=== PATIENT | male | born 1985 | race Caucasian/White ===

== ENCOUNTER 2022-11-12 14:38 | Emergency (ER) | payer MEDICAID, SELFPAY ==
[2022-11-12 14:40] VITALS: BP 121/92; PULSE 99; RESP 20; TEMP 36.9; O2SAT 97
--- NOTE | 2022-11-12 14:47 | ED.GENADUL_ITS ---
Discharge Plan Disposition Patient Disposition: Home Condition: Good Discharge Details Clinical Impression: Noncompliance with medications Primary Care Provider: Unknown,Unknown ED Provider: Spenser Silvestre Home Meds and New Rx's Prescriptions: No Action methadone 10 mg Tablet 50 mg PO DAILY Discharge Instructions Additional Instructions: Please do your best to not miss your methadone dosings at the clinic. If you notice any worsening of your symptoms, or any new symptoms such as vomiting, diarrhea, fever, chills, shortness of breath, chest pain, numbness, weakness, or fainting , please return immediately to the emergency department for reevaluation. Please follow up with your primary care provider as soon as possible for reassessment and reevaluation. As always, it was a pleasure participating in your medical care today. Medical Decision Making 37-year-old male who presents secondary to a missed methadone dose. Patient states that he recently moved out to this area. He is taking 50 mg of methadone daily at the [facility]. He is not able to make the box for the last 2 days. He denies any drug or alcohol use. He states that he is moved up here to try to get clean. He denies any other complaints at this time. No other modifying factors. He admits to anxiousness, tremulousness, generalized malaise. He denies any fever or chills. Physical exam demonstrates a tremulous anxious appearing male. Vital signs demonstrate minimal tachycardia, blood pressure slightly elevated. Symptoms appear consistent with mild withdrawal. I had a long discussion with the patient regarding the services and the role of the emergency department, as well as the strict requirements from the [facility]. Dose was confirmed. We will give his single dose of 50 mg here today. I have extensively reviewed the treatment plan and discharge instructions with the patient. I have addressed all patient concerns at this time. The patient was made aware of what symptoms to monitor for that would warrant a return to the emergency department. Discussed the plan with the patient, they demonstrate verbal understanding and agreement with our assessment and plan at this time. The documentation in this chart was dictated using [email or web address] dictation software. Please excuse any dictation errors. HPI General Date/Time Provider Initiated Documentation: 11/12/22 14:43 . HPI Narrative: 37-year-old male who presents secondary to a missed methadone dose. Patient states that he recently moved out to this area. He is taking 50 mg of methadone daily at the [facility]. He is not able to make the box for the last 2 days. He denies any drug or alcohol use. He states that he is moved up here to try to get clean. He denies any other complaints at this time. No other modifying factors. He admits to anxiousness, tremulousness, generalized malaise. He denies any fever or chills. Related Data Home Medications Medication Instructions Recorded Confirmed methadone 10 mg tablet 50 mg PO DAILY 11/12/22 11/12/22 Allergies Allergy/AdvReac Type Severity Reaction Status Date / Time mirtazapine AdvReac Hives Unverified 11/12/22 14:46 General Stated Complaint: DrugWithdr/MAT DIANA: 3 Review of Systems All systems reviewed & are unremarkable except as noted in HPI and below PFSH All Active Problems Noncompliance with medications (Acute) Social History Smoking/Tobacco Use Status: Current every day Tobacco Type: cigarettes Smoking risk assessment performed?: Yes Alcohol Intake: former Drug use: Current Sobriety 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 3.ENT: Atraumatic external nose and ears. Moist MM. Neck: Symmetric, trachea midline, No thyromegaly. 4.CVS: +S1/S2, No murmurs or gallops. Peripheral pulses 2+ and equal in all extremities. Brisk capillary refill in all extremities. 5.RESP: Unlabored respiratory effort. Clear to auscultation bilaterally. No wheezes rales or rhonchi 6.GI: Soft, Nontender/Nondistended, No hepatosplenomegaly. No guarding or rebound. 7.MSK: Normocephalic/Atraumatic, Extremities w/o deformity or ttp No cyanosis or clubbing, Normal movement of all extremities 8.Skin: Warm, Dry. No rashes or lesions. 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 Sensation grossly intact, no focal neurologic deficits. 10.Psych: (AAO) x3. Nervous, anxious appearing, slightly tremulous Course Vital Signs Vital signs: Vital Signs Temperature 36.9 C 11/12/22 14:40 Pulse 99 H 11/12/22 14:40 Respiratory Rate 20 11/12/22 14:40 Blood Pressure 121/92 H 11/12/22 14:40 Pulse Oximetry 97 11/12/22 14:40 Temperature 36.9 C 11/12/22 14:40 Temperature Source Skin 11/12/22 14:40 Pulse 99 H 11/12/22 14:40 Respiratory Rate 20 11/12/22 14:40 Blood Pressure 121/92 H 11/12/22 14:40 Blood Pressure Position Sitting 11/12/22 14:40 Pulse Oximetry 97 11/12/22 14:40 Oxygen Delivery Method Room Air 11/12/22 14:40 Oxygen Flow Rate 0 11/12/22 14:40 Pain Level 0 11/12/22 14:40
[2022-11-12 14:56] VITALS: BP 121/92; PULSE 99; RESP 20; TEMP 36.9; O2SAT 97
[2022-11-12] MEDS: Methadone Liquid 10 MG/ML 50 MG PO (15:04)
== END 2022-11-12 14:58 | disposition home or self-care (01) ==
PROVIDERS: Emergency Provider Student in an Organized Health Care Education/Training Program
DX: F11.20 Opioid dependence, uncomplicated (principal); Z91.14 Patient's other noncompliance with medication regimen
CPT/HCPCS: 99283; 99284